=== PATIENT | female | born 1960 | race Caucasian/White ===

== ENCOUNTER 2016-10-27 07:17 | Emergency (ER) | payer OTHER ==
[2016-10-27 07:33] VITALS: BP 132/99
--- NOTE | 2016-10-27 08:01 | UC ---
Hand/Wrist HPI - HPI Summary HPI Summary: SLIPPED ON WET FLOOR LAST NIGHT IN HER HOUSE AND LANDED ON OUTSTRETCHED LEFT HAND. NOW C/O SWELLING BASE OF LEFT THUMB AND PAIN LEFT WRIST. NO NUMBNESS. - History Of Current Complaint Chief Complaint: UCUpperExtremity Stated Complaint: WRIST INJURY Time Seen by Provider: 10/27/16 07:52 Hx Obtained From: Patient Onset/Duration: Sudden Onset, Lasting Hours, Still Present Severity Initially: Moderate Severity Currently: Moderate Pain Intensity: 8 Pain Scale Used: 0-10 Numeric Character Of Pain: Sharp, Aching Aggravating Factor(s): Movement Alleviating: Rest Associated Signs And Symptoms: Positive: Swelling, Bruising. Negative: Numbness /Tingling - Allergies/Home Medications Allergies/Adverse Reactions: Allergies Allergy/AdvReac Type Severity Reaction Status Date / Time Dogs and Cats Allergy Wheezing Uncoded 10/27/16 07:33 PMH/Surg Hx/FS Hx/Imm Hx Endocrine History Of: Denies: Diabetes, Thyroid Disease Cardiovascular History Of: Reports: Hypertension Denies: Cardiac Disorders Respiratory History Of: Reports: Asthma Denies: COPD GI/ History Of: Denies: Ulcer Cancer History Of: Denies: Breast Cancer - Surgical History Surgical History: None - Family History Known Family History: Positive: Hypertension - Social History Alcohol Use: Occasionally Substance Use Type: None Smoking Status (MU): Current Some Day Smoker Type: Cigarettes Review of Systems Constitutional: Negative Skin: Bruising Respiratory: Negative Cardiovascular: Negative Gastrointestinal: Negative All Other Systems Reviewed And Are Negative: Yes Physical Exam Triage Information Reviewed: Yes Appearance: Well-Appearing, No Pain Distress, Well-Nourished Vital Signs: Initial Vital Signs Temp 98.2 F 10/27/16 07:27 Pulse 91 10/27/16 07:27 Resp 18 10/27/16 07:27 BP 132/99 10/27/16 07:27 Pulse Ox 97 10/27/16 07:27 Vital Signs Reviewed: Yes Eyes: Positive: Conjunctiva Clear ENT: Positive: Hearing grossly normal Neck: Positive: Supple Respiratory: Positive: No respiratory distress, No accessory muscle use Cardiovascular: Positive: Pulses Normal Abdomen Description: Positive: Soft Musculoskeletal: Positive: No Edema, ROM Limited @ - LEFT WRIST, Other: - NO SNUFFBOX TENDERNESS. TENDER DIFFUSELY OVER LEFT WRIST. Neurological: Positive: Alert Psychological: Positive: Age Appropriate Behavior Skin: Positive: Other - SLIGHT BRUISING BASE OF LEFT THUMB. Negative: rashes Diagnostics - Radiology LEFT WRIST XRAY Xray Interpretation: No Acute Changes Radiology Interpretation Completed By: Radiologist Hand/Wrist Course/Dx - Differential Dx/Diagnosis Provider Diagnoses: LEFT WRIST SPRAIN Discharge - Discharge Plan Condition: Stable Disposition: HOME Patient Education Materials: Wrist Sprain (ED) Referrals: Gertrudis Judd NP [Primary Care Provider] - If Needed Additional Instructions: XRAYS TODAY NEGATIVE FOR FRACTURE OR DISLOCATION. WRIST SPLINT AND SLING FOR COMFORT. OTC MEDS NEEDED FOR PAIN. YOUR SYMPTOMS SHOULD BE NOTICEABLY IMPROVED OVER THE NEXT WEEK OR SO. SEEK FOLLOW-UP IF YOU ARE NOT IMPROVING EXPECTED.
--- NOTE | 2016-10-27 08:16 | RAD ---
HISTORY: Fall on outstretched hand, left wrist pain COMPARISONS: Left hand dated April 06, 2006 VIEWS: 3, Frontal, lateral, and oblique views of the left wrist FINDINGS: BONE DENSITY: Normal. BONES: There is no displaced fracture. JOINTS: There is no arthropathy. ALIGNMENT: There is no dislocation. SOFT TISSUES: Unremarkable. OTHER FINDINGS: None. IMPRESSION: NO ACUTE OSSEOUS INJURY. IF SYMPTOMS PERSIST, RECOMMEND REPEAT IMAGING.
== END 2016-10-27 08:41 | disposition home or self-care (01) ==
LOC: UCEAST 07:17
DX: S63.502A Unspecified sprain of left wrist, initial encounter (principal); W01.0XXA Fall on same level from slipping, tripping and stumbling without subsequent striking against object, initial encounter; Y93.9 Activity, unspecified; Y92.009 Unspecified place in unspecified non-institutional (private) residence as the place of occurrence of the external cause; Z72.0 Tobacco use
CPT/HCPCS: 99213; G0463